=== PATIENT | male | born 1990 | race Caucasian/White ===

== ENCOUNTER 2019-11-05 07:37 | Emergency (ER) | payer OTHER ==
[~2019-11-05] VITALS: Ht 177.8 cm; Wt 74.8 kg
[~2019-11-05 07:37] MED LIST: IBUPROFEN800 MG PO; NORCO 5-325 TA1 EACH PO; PENICILLIN V P500 MG PO
--- OUTSIDE RECORDS SUMMARY | 2019-11-05 07:40 | XMS ---
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 Guidelines Source: [facility] [place] Guidelines Date: 01/21/2019 Care Coordination: Mental health services are being provided by [facility].\T\nbsp; Please contact [facility] with mental health concerns.\T\nbsp; [facility] [place]: [phone]\T\nbsp; [facility]: [phone]. E.D. VISIT COUNT (12 MO.) 1 [facility] 1 [facility] TOTAL 2 NOTE: Visits indicate total known visits. ED/UCC VISIT TRACKING (12 MO.) 11/05/2019 07:38 [facility] [place] TYPE: Emergency COMPLAINT: - NECK PAIN NON INJURY 01/20/2019 14:[address] [facility] TYPE: Emergency DIAGNOSES: - weight loss, rectal bleeding - Weight Loss - Noninfective gastroenteritis and colitis, unspecified - Diarrhea, unspecified - Diarrhea (Adult) - Rectal Bleed INPATIENT VISIT TRACKING (12 MO.) No inpatient visits to display in this time frame [email or web address]
[2019-11-05] MEDS ORDERED: CYCLOBENZAPRINE10 MG PO (08:17)
== END 2019-11-05 08:32 | disposition home or self-care (01) ==
LOC: ED 07:37
DX: S29.012A Strain of muscle and tendon of back wall of thorax, initial encounter (principal); M62.830 Muscle spasm of back; F17.200 Nicotine dependence, unspecified, uncomplicated; X58.XXXA Exposure to other specified factors, initial encounter
CPT/HCPCS: 99283; A9270